=== PATIENT | male | born 2000 | race Caucasian/White ===

== ENCOUNTER 2019-05-21 01:30 | Emergency (ER) | payer OTHER ==
[2019-05-21 01:41] VITALS: BP 138/86; PULSE 68; BMI 34.8
--- NOTE | 2019-05-21 02:05 | PDOC ---
History of Present Illness - General Chief Complaint: Respiratory Stated Complaint: CANT CATCH BREATH WHILE LYING DOWN Time Seen by Provider: 05/21/19 01:34 History Source: Patient - History of Present Illness Initial Comments: 05/21/19 06:26 when he lies down flat he gets an irritation in his throat and feels that he can 't breath Is this a multiple visit Asthma Patient?: No Timing/Duration: constant, intermittent, other (> 1 week) Modifying Factors: improves with: rest Associated Symptoms: reports: shortness of breath. denies: chest pain, cough, fever/chills, loss of appetite Past History - Past Medical History Allergies/Adverse Reactions: Allergies Allergy/AdvReac Type Severity Reaction Status Date / Time No Known Allergies Allergy Verified 05/21/19 01:33 Home Medications: Ambulatory Orders Omeprazole 40 mg PO DAILY #30 tablet. 05/21/19 COPD: No Other medical history: DENIES - Immunization History Immunization Up to Date: Yes - Psycho Social/Smoking Cessation Hx Smoking History: Never smoked Have you smoked in the past 12 months: No Information on smoking cessation initiated: No Hx Alcohol Use: No Drug/Substance Use Hx: No Review of Systems - Review of Systems All Other Systems: Reviewed and Negative *Physical Exam - Vital Signs Last Vital Signs Temp Pulse Resp BP Pulse Ox 68 16 138/86 99 05/21/19 01:34 05/21/19 01:34 05/21/19 01:34 05/21/19 01:34 - Physical Exam General Appearance: Yes: Nourished, Appropriately Dressed Neck: negative: Lymphadenopathy (R), Lymphadenopathy (L) Respiratory/Chest: positive: Lungs Clear. negative: Chest Tender Cardiovascular: positive: Regular Rhythm Gastrointestinal/Abdominal: positive: Normal Bowel Sounds. negative: Tender, Distended Lymphatic: negative: Adenopathy Musculoskeletal: positive: Normal Inspection Extremity: positive: Normal Capillary Refill. negative: Calf Tenderness Integumentary: positive: Normal Color Medical Decision Making - Medical Decision Making 05/21/19 06:27 19 y male with respiratory symptoms reversibly when he lies flat ? GERD PERC- no signs/ symptoms of pneumonia trial of PPI pcp fu Discharge - Discharge Information Problems reviewed: Yes Clinical Impression/Diagnosis: GERD (gastroesophageal reflux disease) Qualifiers: Esophagitis presence: without esophagitis Qualified Code(s): K21.9 - Gastro- esophageal reflux disease without esophagitis Condition: Stable Disposition: HOME - Additional Discharge Information Prescriptions: Omeprazole 40 mg PO DAILY #30 tablet.dr - Follow up/Referral - Patient Discharge Instructions Patient Printed Discharge Instructions: DI for Gastroesophageal Reflux Disease (GERD) Additional Instructions: Take Maalox or Mylanta if your symptoms recur - Post Discharge Activity
== END 2019-05-21 02:08 | disposition home or self-care (01) ==
LOC: FER 01:30
DX: K21.9 Gastro-esophageal reflux disease without esophagitis (principal)
CPT/HCPCS: 99281-25

== ENCOUNTER 2020-04-06 21:24 | Emergency (ER) | payer OTHER ==
[2020-04-06 21:29] VITALS: BP 160/83; PULSE 88; TEMP 98.9; BMI 34.8
--- OUTSIDE RECORDS SUMMARY | 2020-04-06 21:43 | XMS ---
:2000 Author Organization [facility] Support Name Relationship Address Phone RAMO Unavailable Unavailable Unavailable JULIÁN WISDOM MOTHER [address] [place] [address] Re-disclosure Warning The records that you are about to access may contain information from federally- assisted alcohol or drug abuse programs. If such information is present, then the following federally mandated warning applies: This information has been disclosed to you from records protected by federal confidentiality rules (42 CFR part 2). The federal rules prohibit you from making any further disclosure of this information unless further disclosure is expressly permitted by the written consent of the person to whom it pertains or as otherwise permitted by 42 CFR part 2. A general authorization for the release of medical or other information is NOT sufficient for this purpose. The Federal rules restrict any use of the information to criminally investigate or prosecute any alcohol or drug abuse patient.The records that you are about to access may contain highly sensitive health information, the redisclosure of which is protected by Article 27-F of the [facility] Public Health law. If you continue you may haveaccess to information: Regarding HIV / AIDS; Provided by facilities licensed or operated by the [facility] Office of Mental Health; or Provided by the [facility] Office for People With Developmental Disabilities. If such information is present, then the following [facility] mandated warning applies: This information has been disclosed to you from confidential records which are protected by state law. State law prohibits you from making any further disclosure of this information without the specific written consent of the person to whom it pertains, or as otherwise permitted by law. Any unauthorized further disclosure in violation of state law may result in a fine or mcfp sentence or both. A general authorization for the release of medical or other information is NOT sufficient authorization for further disclosure. Insurance Providers Payer name Policy type Policy ID Covered Covered alliance party's Policy P inge / Coverage alliance party ID relationship to Victor Inf ormation type victor PELHAM [id number] [employer] PLANS
--- NOTE | 2020-04-06 21:51 | PDOC ---
History of Present Illness - General Chief Complaint: Pain Stated Complaint: UPPER LEFT CHEST PAIN X 1/2 HOUR Time Seen by Provider: 04/06/20 21:49 History Source: Patient Exam Limitations: No Limitations - History of Present Illness Initial Comments: 04/06/20 22:13 This is a 20-year-old male who comes in complaining of approximately 30 minutes of sharp stabbing pain in his left upper chest. Patient denies any associated symptoms of nausea, diaphoresis, dizziness, shortness of breath. Patient denies any risk factors including no illegal drug use or smoking. Patient has no prior medical history. Patient denies a family history of coronary artery disease. Patient symptoms have now completely resolved. Allergies: as per nursing notes Past Medical History: none Social history: Lives with family. No smoking. No alcohol. No illicit drugs. Surgical history: None General: No fevers or chills, no weakness, no weight loss HEENT: No change in vision. No sore throat,. No ear pain CardioVascular: no chest discomfort. No shortness of breath, chest pain as per HPI Respiratory:No cough, or wheezing. Gastrointestinal: no nausea, vomiting, diarrhea or constipation, No rectal bleeding Genitourinary: No dysuria, hematuria, or frequency Musculoskeletal: No joint or muscle pain or swelling Neurologic: No headache, vertigo, dizziness or loss of consciousness Psychiatric: nor depression Skin: No rashes or easy bruising Endocrine: no increased thirst or abnormal weight change Allergic: no skin or latex allergy All other systems reviewed and normal Exam: General: Well-nourished well-developed individual, no acute distress HEENT: Throat: Normal, tonsils normal, no erythema or exudate Neck: Supple, no meningeal signs, no lymphadenopathy Eyes::Pupils equal reactive and round, extraocular motion intact Chest: Nontender to palpation Cardiac: S1-S2 normal, regular rate and rhythm, no murmurs rubs or gallops Respiratory: Lungs clear to auscultation bilateral Abdomen: Soft, nondistended, normal bowel sounds, there is no tenderness on palpation diffusely Extremities: Warm, dry, no cyanosis, clubbing, or edema Skin: No rashes Neuro: Alert and oriented x3, CN II - XII intact, nonfocal exam with normal strength, normal sensation, normal reflexes, normal gait, Psych: Normal mood and affect EKG showed normal sinus rhythm at a rate of [address]-T wave changes completely normal EKG Patient reassured and discharged and told to follow-up with his primary care doctor Past History - Medical History Allergies/Adverse Reactions: Allergies Allergy/AdvReac Type Severity Reaction Status Date / Time No Known Allergies Allergy Verified 04/06/20 21:26 Home Medications: Ambulatory Orders NK [No Known Home Medication] 04/06/20 COPD: No Other medical history: DENIES - Immunization History Immunization Up to Date: Yes - Psycho-Social/Smoking History Smoking History: Never smoked Have you smoked in the past 12 months: No Information on smoking cessation initiated: No - Substance Abuse Hx (Audit-C & DAST Scrn) How often the patient has a drink containing alcohol: Never Score: In Men: 4 or > Positive; In Women: 3 or > Positive: 0 Screen Result (Pos requires Nsg. Audit-10AR): Negative In the last yr the pt used illegal drug/Rx for NonMed reason: No Score: Yes response is considered Positive: 0 Screen Result (Positive result requires Nsg. DAST-10): Negative *Physical Exam - Vital Signs Last Vital Signs Temp Pulse Resp BP Pulse Ox 98.9 F 88 16 160/83 100 04/06/20 21:27 04/06/20 21:27 04/06/20 21:27 04/06/20 21:27 04/06/20 21:27 Discharge - Discharge Information Problems reviewed: Yes Clinical Impression/Diagnosis: Chest pain, atypical Condition: Stable Disposition: HOME - Admission No - Follow up/Referral - Patient Discharge Instructions Additional Instructions: Tylenol or Motrin if needed for pain. Follow-up with your primary care doctor. Return to the emergency department immediately with ANY new, persistent or worsening symptoms. Continue any medications as previously prescribed by your physician. You should follow up with your primary doctor as soon as possible regarding today's emergency department visit. . Please make sure your doctor reviews the results of your emergency evaluation. Thank you for coming to the Emergency Department today for your care. It was a pleasure to see you today. Please note that your evaluation is INCOMPLETE until you follow-up with your doctor. - Post Discharge Activity
--- NOTE | 2020-04-07 14:07 | EKG ---
Test Reason : Blood Pressure : / mmHG Vent. Rate : 085 BPM Atrial Rate : 085 BPM P-R Int : 146 ms QRS Dur : 100 ms QT Int : 358 ms P-R-T Axes : 052 056 049 degrees QTc Int : 426 ms NORMAL SINUS RHYTHM NORMAL ECG NO PREVIOUS ECGS AVAILABLE Confirmed by OPAL MATHEW MD ([id number]) on 04/07/2020 2:07:24 PM Referred By: Confirmed By:OPAL MATHEW MD
== END 2020-04-06 21:59 | disposition home or self-care (01) ==
LOC: FER 21:24
DX: R07.9 Chest pain, unspecified (principal)
CPT/HCPCS: 93005; 99283-25

== ENCOUNTER 2020-04-21 03:05 | Emergency (ER) | payer OTHER ==
[2020-04-21 03:14] VITALS: BP 139/80; PULSE 80; TEMP 98.4; BMI 34.8
--- NOTE | 2020-04-21 03:17 | PDOC ---
History of Present Illness - General Chief Complaint: Respiratory Stated Complaint: doing homework,became sob,rapid heart rate Time Seen by Provider: 04/21/20 03:16 History Source: Patient Exam Limitations: No Limitations - History of Present Illness Initial Comments: 04/21/20 03:23 This is a 20-year-old male who is away at college. Patient said while studying he all of a sudden developed shortness of breath and palpitations. Patient was here recently for the same problem and had a EKG and brief work-up that was all negative. Patient has not gone home yet and is on able to follow-up with his primary care doctor. Allergies: as per nursing notes Past Medical History: none Social history: Lives with family. No smoking. No alcohol. No illicit drugs. Surgical history: None General: No fevers or chills, no weakness, no weight loss HEENT: No change in vision. No sore throat,. No ear pain CardioVascular: no chest discomfort + shortness of breath, +palpitations Respiratory:No cough, or wheezing. Gastrointestinal: no nausea, vomiting, diarrhea or constipation, No rectal bleeding Genitourinary: No dysuria, hematuria, or frequency Musculoskeletal: No joint or muscle pain or swelling Neurologic: No headache, vertigo, dizziness or loss of consciousness Psychiatric: nor depression Skin: No rashes or easy bruising Endocrine: no increased thirst or abnormal weight change Allergic: no skin or latex allergy All other systems reviewed and normal Exam: General: Well-nourished well-developed individual, no acute distress HEENT: Throat: Normal, tonsils normal, no erythema or exudate Neck: Supple, no meningeal signs, no lymphadenopathy Eyes::Pupils equal reactive and round, extraocular motion intact Chest: Nontender to palpation Cardiac: S1-S2 normal, regular rate and rhythm, no murmurs rubs or gallops Respiratory: Lungs clear to auscultation bilateral Abdomen: Soft, nondistended, normal bowel sounds, there is no tenderness on palpation diffusely Extremities: Warm, dry, no cyanosis, clubbing, or edema Skin: No rashes Neuro: Alert and oriented x3, CN II - XII intact, nonfocal exam with normal strength, normal sensation, normal reflexes, normal gait, Psych: Normal mood and affect Assessment and plan: This is a 20-year-old male with palpitations and chest discomfort that have nearly resolved. Patient symptoms most likely are seco ndary to an anxiety or panic attack. Patient discharged we will follow-up with his primary care doctor when he goes home over the next break. In the meantime I told patient to follow-up with a counselor at the school. Past History - Medical History Allergies/Adverse Reactions: Allergies Allergy/AdvReac Type Severity Reaction Status Date / Time No Known Allergies Allergy Verified 04/06/20 21:26 Home Medications: Ambulatory Orders NK [No Known Home Medication] 04/06/20 COPD: No - Immunization History Immunization Up to Date: Yes - Psycho-Social/Smoking History Smoking History: Never smoked Have you smoked in the past 12 months: No Information on smoking cessation initiated: No - Substance Abuse Hx (Audit-C & DAST Scrn) How often the patient has a drink containing alcohol: Monthly or less Score: In Men: 4 or > Positive; In Women: 3 or > Positive: 1 Screen Result (Pos requires Nsg. Audit-10AR): Negative In the last yr the pt used illegal drug/Rx for NonMed reason: No Score: Yes response is considered Positive: 0 Screen Result (Positive result requires Nsg. DAST-10): Negative *Physical Exam - Vital Signs Last Vital Signs Temp Pulse Resp BP Pulse Ox 98.4 F 80 17 139/80 99 04/21/20 03:11 04/21/20 03:11 04/21/20 03:11 04/21/20 03:11 04/21/20 03:11 Discharge - Discharge Information Problems reviewed: Yes Clinical Impression/Diagnosis: Anxiety Condition: Stable Disposition: HOME - Admission No - Follow up/Referral - Patient Discharge Instructions Additional Instructions: Your symptoms most likely are secondary to stress, anxiety and a mild panic attack. Follow-up with a therapist or counselor at your school. Return to the emergency department immediately with ANY new, persistent or worsening symptoms. Continue any medications as previously prescribed by your physician. You should follow up with your primary doctor as soon as possible regarding today's emergency department visit. . Please make sure your doctor reviews the results of your emergency evaluation. Thank you for coming to the Emergency Department today for your care. It was a pleasure to see you today. Please note that your evaluation is INCOMPLETE until you follow-up with your doctor. - Post Discharge Activity
--- OUTSIDE RECORDS SUMMARY | 2020-04-21 03:18 | XMS ---
:2000 Author Organization [facility] Support Name Relationship Address Phone RAMO Unavailable Unavailable Unavailable JULIÁN WISDOM MOTHER [address] [place] [address] JULIÁN WISDOM Mother [address] [phone] [place] [address] Re-disclosure Warning The records that you are [...] is protected by Article 27-F of the [facility] Public Health law. If you continue you may haveaccess to information: Regarding HIV / AIDS; Provided by facilities licensed or operated by the [facility] Office of Mental Health; or Provided by the [facility] Office for People With Developmental Disabilities. If such information is present, then the following [facility] mandated warning applies: This information has been [...] law may result in a fine or detention sentence or both. A general authorization for the release of medical or other information is NOT sufficient authorization for further disclosure. Insurance Providers Payer name Policy type Policy ID Covered Covered green party's Policy P inge / Coverage green party ID relationship to Victor Inf ormation type victor JEDDO [id number] [facility] [id number] [facility]
== END 2020-04-21 03:31 | disposition home or self-care (01) ==
LOC: FER 03:05
DX: F41.9 Anxiety disorder, unspecified (principal)
CPT/HCPCS: 99284-25